=== PATIENT | female | born 2000 | race Caucasian/White ===

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

== ENCOUNTER 2021-09-03 17:00 | Emergency (ER) | payer MEDICAID, SELFPAY ==
[2021-09-03 17:31] VITALS: BP 153/76; PULSE 117; RESP 18; TEMP 37; O2SAT 97; BMI 29.2
[2021-09-03 18:00] LABS: Apearance,Urine Clear (Clear); Color,Urine Dark Yellow (Yellow); Specific Gravity, Urine 1.025 (1.005-1.030)
[2021-09-03 18:01] LABS: Glucose,Urine (UA) Negative (Negative); Ketones,Urine Negative (Negative); Protein,Urine 2+ (Negative)
[2021-09-03 18:02] LABS: Bilirubin,Urine 1+ (Negative); Blood, Urine 1+ (Negative); UTC Leukocyte Esterase,Urine Trace (Negative); UTC Nitrate,Urine Positive (Negative); Urobilinogen,Urine 1 EU/dl (0.2)
--- NOTE | 2021-09-03 18:10 | HMH.EDUTC ---
[facility] – [place] Clinical Impression: UTI (urinary tract infection) Qualifiers: Urinary tract infection type: site unspecified Hematuria presence: with hematuria Qualified Code(s): N39.0 - Urinary tract infection, site not specified Disposition: Home, Self-Care Condition on Discharge: Good Instructions: Urinary Tract Infection, Urine Culture, DI for Urinary Tract Infection (UTI) Additional Instructions: Drink plenty of fluids. Take tylenol or ibuprofen for pain or fever. Take the medications as directed. Follow up with your regular doctor. GO TO THE ER FOR ANY WORSENING SYMPTOMS The pyridium will make your urine turn orange, this is an expected side effect. It will stain your clothes if it comes into contact with them. We will culture the urine. That will tell what bacteria is causing your infection and which antibiotics will treat it best. Sometimes the first antibiotic we prescribe turns out to not work against different bacteria. So, make sure you follow up within 3 days if you are not getting better. Prescriptions: Ondansetron [Zofran 4mg ODT] 4 mg PO Q8HP PRN #20 tab PRN Reason: Nausea Transmission Status: Received by [id number] Sulfamethoxazole/Trimethoprim [Bactrim DS tablet] 1 each PO BID 7 Days #14 tab Transmission Status: Received by [id number] Phenazopyridine HCl [Pyridium 200mg Tablet] 200 pow PO TID #6 tab Transmission Status: Received by [id number] Referrals: Provider,Referral, MD [Primary Care Provider] - Forms: Work/School Release Time of Disposition: 18:12 Medical Decision Making - Medical Records Medical records reviewed: No: I reviewed the patient's medical records. - Biju Inquiry Pt receiving controlled substance: No Vital Signs: 09/03/21 17:31 09/03/21 18:26 Temperature 98.6 F 98.6 F Temperature Source Oral Pulse Rate 117 H Pulse Rate [Left] 117 H Respiratory Rate 18 18 Blood Pressure 153/76 H Blood Pressure [Right Arm] 153/76 H Blood Pressure Mean [Right Arm] 101 02 Sat by Pulse Oximetry 97 - Lab Data Lab results reviewed: Yes: I reviewed the patient's lab results. Lab Results 09/03/21 17:59: Urine Color Dark yellow, Urine Appearance Clear, Urine pH 6.0, Ur Specific [place] 1.025, Urine Protein 2+, Urine Glucose (UA) Negative, Urine Ketones Negative, Urine Blood 1+, Urine Nitrate Positive A, Urine Bilirubin 1+ A, Urine Urobilinogen 1, Ur Leukocyte Esterase Trace [facility] [place] HPI - General Stated complaint: painful/burning urination Time Seen by Provider: 09/03/21 17:45 Mode of Arrival: Ambulatory Source of Information: Patient Limitations: No Limitations Description of Symptoms (Recalled from Triage Doc. by RN): burning with urination HEENT Symptoms (Recalled from RN notes): No Resp Symptoms (Recalled from RN notes): No Skin Symptoms (Recalled from RN notes): No MS Symptoms (Recalled from RN notes): No Functional Status (Recalled from RN notes): wnl - History of Present Illness Provider Complaint: She states that she has had burning with urination, low back pain, frequency and urgency for the past 2 days. She denies any fever or chills. - Related Data Home Medications Medication Instructions Recorded Confirmed Albuterol Sulfate [Albuterol 2 inh PO DIRECTED 03/26/19 03/26/19 Sulfate Hfa] Budesonide/Formoterol Fumarate 2 inh PO DIRECTED 03/26/19 03/26/19 [Symbicort 80-4.5 Mcg Inhaler] Cetirizine HCl 10 mg PO DAILY 03/26/19 03/26/19 Doxycycline Hyclate [Doxycycline 100 mg PO BID 03/26/19 03/26/19 100mg Capsule] Loratadine [Claritin 10mg 10 mg PO DAILY 03/26/19 03/26/19 Tablet] Promethazine/Dextromethorphan 5 ml PO QID 03/26/19 03/26/19 [Promethazine-Dm Syrup] Pseudoephedrine HCl [12 Hour 120 mg PO BID 03/26/19 03/26/19 Decongestant] methylPREDNISolone [Medrol] 4 mg PO DIRECTED 03/26/19 03/26/19 Previous Rx's Medication Instructions Recorded Azithromycin [Z-
[2021-09-03 18:26] VITALS: BP 153/76; PULSE 117; RESP 18; TEMP 37
== END 2021-09-03 18:27 | disposition home or self-care (01) ==
PROVIDERS: Emergency Provider Nurse Practitioner Family
DX: N30.00 Acute cystitis without hematuria (principal); B96.20 Unspecified Escherichia coli [E. coli] as the cause of diseases classified elsewhere
CPT/HCPCS: 81003; 87086; 87088; 87186; 99202; G0463